=== PATIENT | male | born 1965 ===

== ENCOUNTER 2018-04-02 23:51 | Emergency (ER) | payer OTHER ==
[2018-04-03 00:21] VITALS: RESP 18
--- NOTE | 2018-04-03 00:43 | ED PDOC ---
Arrival/HPI - General Chief Complaint: Alcohol Ingestion Time Seen by Provider: 04/02/18 23:52 Historian: Patient, EMS - History of Present Illness Narrative History of Present Illness (Text): 04/03/18 00:40 A 57 year old male, with no known past medical history, is brought into the emergency department via EMS after being found sleeping outside. Patient admits to drinking alcohol today. Patient's HPI and ROS limited due to alcohol intoxication. Time/Duration: Prior to Arrival Symptom Onset: Sudden Symptom Course: Unchanged Activities at Onset: Rest, Light Context: Street Past Medical History - Provider Review Nursing Documentation Reviewed: Yes - Psychiatric Hx Substance Use: No Family/Social History - Physician Review Nursing Documentation Reviewed: Yes Family/Social History: No Known Family HX Smoking Status: Unknown If Ever Smoked Hx Alcohol Use: No Hx Substance Use: No Allergies/Home Meds Allergies/Adverse Reactions: Allergies Unobtainable Allergy (Verified 04/03/18 00:13) Home Medications: Home Meds Medication Instructions Recorded Confirmed Unobtainable 04/03/18 04/03/18 Review of Systems - Physician Review All systems were reviewed & negative as marked: Yes - Review of Systems Systems not reviewed;Unavailable: Intoxicated Physical Exam Vital Signs Reviewed: Yes Vital Signs Temp Pulse Resp BP Pulse Ox 04/03/18 10:30 98.2 F 72 18 138/80 96 04/03/18 09:45 98 F 72 18 142/79 96 04/03/18 05:53 84 18 138/68 100 04/03/18 04:00 86 16 146/62 100 04/03/18 02:00 84 18 99 04/03/18 00:20 98.4 F 88 18 142/62 98 Temperature: Afebrile Blood Pressure: Normal Pulse: Regular Respiratory Rate: Normal Pain Distress: None - Systems Exam Head: Present: Normocephalic, Abrasion (Abrasion to left side of head.) Pupils: Present: PERRL Extroacular Muscles: Present: EOMI Conjunctiva: Present: Normal Mouth: Present: Moist Mucous Membranes Neck: Present: Normal Range of Motion Respiratory/Chest: Present: Clear to Auscultation, Good Air Exchange. No: Respiratory Distress, Accessory Muscle Use Cardiovascular: Present: Regular Rate and Rhythm, Normal S1, S2. No: Murmurs Abdomen: No: Tenderness, Distention, Peritoneal Signs Back: Present: Normal Inspection Upper Extremity: Present: Normal Inspection. No: Cyanosis, Edema Lower Extremity: Present: Normal Inspection. No: Edema Neurological: Present: GCS=15, CN II-XII Intact, Speech Normal Skin: Present: Warm, Dry, Normal Color. No: Rashes Psychiatric: Present: Alert, Oriented x 3, Normal Insight, Normal Concentration Medical Decision Making ED Course and Treatment: 04/03/18 00:42 Impression: A 57 year old male is brought into the emergency department via EMS after being found sleeping outside. He admits to drinking alcohol. Plan: -- Head CT -- Labs -- Urinalysis -- Reassess and disposition Progress Notes: CT Head Without Intravenous Contrast Dictated and Authenticated by: Radha Helms MD 04/03/2018 3:23 AM Eastern Time ([place] & [place]) IMPRESSION: Chronic bilateral subdural hygromas. 04/03/18 20:02 family arriaves states pt with etoh consumption. will dc pt to family - Lab Interpretations Lab Results: Lab Results 04/03/18 05:59: POC Glucose (mg/dL) 88 I have reviewed the lab results: Yes - RAD Interpretation Radiology Orders: 04/03/18 00:24 HEAD W/O CONTRAST [CT] Stat - Scribe Statement The provider has reviewed the documentation as recorded by the Scribe Katheryn Oconnell Provider Scribe Attestation: All medical record entries made by the Scribe were at my direction and personally dictated by me. I have reviewed the chart and agree that the record accurately reflects my personal performance of the history, physical exam, medical decision making, and the department course for this patient. I have also personally directed, reviewed, and agree with the discharge instructions and disposition. Disposition/Present on Arrival - Present on Arrival Any Indicators Present on Arrival: No History of DVT/PE: No History of Uncontrolled Diabetes: No Urinary Catheter: No History of Decub. Ulcer: No History Surgical Site Infection Following: None - Disposition Have Diagnosis and Disposition been Completed?: Yes Diagnosis: Alcohol abuse Disposition: HOME/ ROUTINE Disposition Time: 10:00 Condition: STABLE Discharge Instructions (ExitCare): Alcohol Abuse and Alcoholism (DC) Additional Instructions: please follow up with your doctor. return to er with worsening symptoms or concerns. Referrals: Alcoholics Anonymous [Outside] - Follow up with primary Forms: [employer] (Maltese)
--- NOTE | 2018-04-03 03:23 | CT ---
EXAM: CT Head Without Intravenous Contrast CLINICAL HISTORY: 57 years old, male; Injury or trauma; Injury ETOH trauma; Initial encounter; Abrasion; Head, generalized TECHNIQUE: Axial computed tomography images of the head/brain without intravenous contrast. All CT scans at this facility use one or more dose reduction techniques, viz.: automated exposure control; ma/kV adjustment per patient size (including targeted exams where dose is matched to indication; i.e. head); or iterative reconstruction technique. Coronal and sagittal reformatted images were created and reviewed. COMPARISON: No relevant prior studies available. FINDINGS: Brain: There are hypodense subdural fluid collections bilaterally along the frontal and parietal convexities measuring 9 mm on the right and 13 mm on the left. No acute hemorrhage. No significant white matter disease. Ventricles: Unremarkable. No ventriculomegaly. Bones/joints: Unremarkable. No acute fracture. Soft tissues: Unremarkable. Sinuses: Unremarkable as visualized. No acute sinusitis. Mastoid air cells: Unremarkable as visualized. No mastoid effusion. IMPRESSION: Chronic bilateral subdural hygromas.
[2018-04-03 09:46] VITALS: PULSE 72; O2SAT 96
[2018-04-03 10:56] VITALS: BP 138/80; TEMP 98.2
== END 2018-04-03 10:56 | disposition home or self-care (01) ==
LOC: EDBD → ED 23:51
DX: F10.129 Alcohol abuse with intoxication, unspecified (principal)